=== PATIENT | male | born 1990 | race Caucasian/White ===

== ENCOUNTER 2016-11-19 18:28 | Inpatient (IN) | payer OTHER ==
[~2016-11-19] VITALS: Ht 175.3 cm; Wt 66.2 kg
[2016-11-20] MEDS ORDERED: BUPRENORPHINE HCL 2 MG TAB.SUBL SL PRN ×2 (02:30→12:45)
[2016-11-20] MEDS ORDERED: MAG HYDROX/AL HYDROX/SIMETH 30 ML LIQUID UDC PO PRN (02:30)
[2016-11-20] MEDS ORDERED: ACETAMINOPHEN 325 MG TABLET PO PRN (02:30)
[2016-11-20] MEDS ORDERED: IBUPROFEN 400 MG TABLET PO PRN (02:30)
[2016-11-20] MEDS ORDERED: diphenhydrAMINE 50 MG CAPSULE PO PRN (02:30)
[2016-11-20] MEDS ORDERED: LORAZEPAM 2 MG/1 ML VIAL IM PRN (02:30)
[2016-11-20] MEDS ORDERED: LOPERAMIDE HCL 2 MG CAPSULE PO PRN ×2 (02:30)
[2016-11-20] MEDS ORDERED: MAGNESIUM HYDROXIDE 30 ML LIQUID UDC PO PRN (02:30)
[2016-11-20] MEDS ORDERED: DIAZEPAM 10 MG TABLET PO PRN ×4 (02:30→12:45)
[2016-11-20] MEDS ORDERED: HYDROXYZINE PAMOATE 25 MG CAPSULE PO PRN (02:30)
[2016-11-20] MEDS ORDERED: MIRALAX 17 GM POWD.PACK PO PRN (02:30)
[2016-11-20] MEDS ORDERED: DICYCLOMINE HCL 20 MG TABLET PO PRN (02:30)
[2016-11-20] MEDS ORDERED: DIAZEPAM 5 MG TABLET PO PRN ×2 (02:30→12:45)
[2016-11-20] MEDS ORDERED: ONDANSETRON 4 MG/2 ML VIAL IM PRN (02:30)
[2016-11-20 02:34] LABS: *AMPHETAMINE, URINE NEGATIVE (NEGATIVE); *BARBITURATE, URINE NEGATIVE (NEGATIVE); *CANNABINOID, URINE NEGATIVE (NEGATIVE); *COCCAINE, URINE POSITIVE (NEGATIVE); *OPIATE, URINE POSITIVE (NEGATIVE); *PHENCYCLIDINE SCREEN,URINE NEGATIVE (NEGATIVE)
[2016-11-20 03:08] LABS: BASOPHILS % (AUTO) 0.4 % (0.0-2.0); EOSINOPHILS # (AUTO) 0.1 K/uL (0.0-0.7); EOSINOPHILS % (AUTO) 1.7 % (0.0-7.0); HEMATOCRIT 37.2 % (36.7-47.1); LYMPHOCYTES # (AUTO) 1.7 K/uL (20.0-40.0); MEAN CORPUSCULAR HEMOGLOBIN 26.7 uug (23.8-33.4); MEAN CORPUSCULAR HGB CONC 35 g/dL (32.5-36.3); MEAN CORPUSCULAR VOLUME 76.6 fL (73.0-96.2); MONOCYTES # (AUTO) 0.8 K/uL (2.0-10.0); MONOCYTES % (AUTO) 9.4 % (0.0-11.0); NEUTROPHILS # (AUTO) 5.4 K/uL (1.8-8.9); NEUTROPHILS % (AUTO) 67.5 % (38.5-71.5); PLATELET COUNT (AUTO) 327 K/uL (152-348); RED BLOOD CELL COUNT(AUTO) 4.86 MIL/uL (4.06-5.63)
[2016-11-20 03:28] LABS: ETHANOL < 3 MG/DL (0-0)
[2016-11-20 03:32] LABS: ALANINE AMINOTRANSFERASE 22 U/L (16-63); ALBUMIN 3.9 g/dL (3.4-5.0); ALKALINE PHOSPHATASE 80 U/L (50-136); AMYLASE 59 U/L (25-115); ASPARTATE AMINOTRANSFERASE 18 U/L (15-37); BILIRUBIN,TOTAL 0.6 mg/dL (0.2-1.0); CALCIUM 8.8 mg/dL (8.5-10.1); CARBON DIOXIDE 32 mmol/L (21-32); CHLORIDE 101 mmol/L (98-107); CREATININE 1.2 mg/dL (0.6-1.3); GFR 74 mL/min (>60); GLUCOSE 96 mg/dL (74-106); LIPASE 124 U/L (73-393); POTASSIUM 3.5 mmol/L (3.5-5.1); SODIUM SERUM 139 mmol/L (136-145); TOTAL PROTEIN, SERUM 8.4 g/dL (6.4-8.2); UREA NITROGEN, BLOOD 11 mg/dL (7-18)
[2016-11-20 03:35] LABS: HIV-1 p24 ANTIGEN NON REACTIVE (NONREACTIVE); HIV-1/2 ANTIBODY NON REACTIVE (NONREACTIVE)
[2016-11-20 03:41] LABS: THYROID STIMULATING HORMONE 2.539 mIU/mL (0.358-3.740)
[2016-11-20 04:00] VITALS: BP 114/55
[2016-11-20] MEDS ORDERED: CLON0.1T PO (05:28)
[2016-11-20] MEDS ORDERED: GABA600T2 PO (05:28)
[2016-11-20 08:06] VITALS: BP 107/66
[2016-11-20] MEDS: MULTIVITAMINS,THERAPEUTIC TABLET PO SCH (09:28)
[2016-11-20] MEDS: CLONIDINE HCL 0.1 MG TABLET PO PRN ×2 (09:28→21:26)
[2016-11-20 12:50] VITALS: BP 137/86
[2016-11-20] MEDS: ONDANSETRON ODT 4 MG TAB.RAPDIS SL PRN (13:05)
[2016-11-20] MEDS: METHOCARBAMOL 750 MG TABLET PO PRN (13:05)
[2016-11-20] MEDS: GABAPENTIN 300 MG CAPSULE PO SCH ×2 (14:28→21:16)
[2016-11-20] MEDS: DIAZEPAM 10 MG TABLET PO SCH ×2 (14:28→21:16)
[2016-11-20 16:55] VITALS: BP 135/81
[2016-11-20 20:00] VITALS: BP 137/69
[2016-11-21] VITALS: BP 128/66
[2016-11-21] MEDS: GABAPENTIN 300 MG CAPSULE PO SCH ×3 (08:18→21:26)
[2016-11-21] MEDS: BUPRENORPHINE HCL 2 MG TAB.SUBL SL SCH ×4 (08:18→21:27)
[2016-11-21] MEDS: DIAZEPAM 10 MG TABLET PO SCH ×3 (08:18→21:26)
[2016-11-21] MEDS: MULTIVITAMINS,THERAPEUTIC TABLET PO SCH (08:18)
[2016-11-21 08:23] VITALS: BP 131/72
[2016-11-21] MEDS: ONDANSETRON ODT 4 MG TAB.RAPDIS SL PRN (08:37)
[2016-11-21] MEDS ORDERED: TUBERCULIN,PURIF.PROT.DERIV. 5 TU/0.1 ML TEST ID ONE (09:00)
[2016-11-21] MEDS ORDERED: NICOTINE POLACRILEX 4 MG GUM-PK OF TEN BC PRN (12:00)
[2016-11-21] MEDS: NICOTINE POLACRILEX 4 MG GUM-PK OF TEN BC PRN (12:34)
[2016-11-21 12:45] VITALS: BP 141/70
[2016-11-21 16:55] VITALS: BP 143/92
[2016-11-21 20:00] VITALS: BP 149/91
[2016-11-21] MEDS: METHOCARBAMOL 750 MG TABLET PO PRN (21:27)
[2016-11-21] MEDS ORDERED: DIAZEPAM 10 MG TABLET PO PRN ×2 (21:30)
[2016-11-21] MEDS ORDERED: DIAZEPAM 5 MG TABLET PO PRN (21:30)
[2016-11-21] MEDS: CLONIDINE HCL 0.1 MG TABLET PO PRN (22:24)
[2016-11-22] VITALS: BP 108/68
[2016-11-22 04:00] VITALS: BP 112/68
[2016-11-22 08:00] VITALS: BP 139/81
[2016-11-22] MEDS: MULTIVITAMINS,THERAPEUTIC TABLET PO SCH (08:26)
[2016-11-22] MEDS: DIAZEPAM 5 MG TABLET PO SCH ×4 (08:27→21:53)
[2016-11-22] MEDS: GABAPENTIN 300 MG CAPSULE PO SCH ×2 (08:27→15:26)
[2016-11-22] MEDS: BUPRENORPHINE HCL 2 MG TAB.SUBL SL SCH ×3 (08:27→21:54)
[2016-11-22] MEDS: NICOTINE POLACRILEX 4 MG GUM-PK OF TEN BC PRN ×3 (08:43→22:04)
[2016-11-22 12:00] VITALS: BP 140/89
[2016-11-22] MEDS: BACLOFEN 10 MG TABLET PO SCH ×2 (15:26→22:03)
[2016-11-22 16:00] VITALS: BP 133/79
[2016-11-22 20:00] VITALS: BP 132/76
[2016-11-22] MEDS ORDERED: GABAPENTIN 300 MG CAPSULE PO SCH (21:00)
[2016-11-23] VITALS: BP 125/76
[2016-11-23 03:06] LABS: HCV AB 0.1 s/co ratio (0.0-0.9); HEPATITIS B CORE AB, IgM Negative (Negative); HEPATITIS B SURFACE AG Negative (Negative)
[2016-11-23 04:00] VITALS: BP 141/94
[2016-11-23 08:00] VITALS: BP 150/84
[2016-11-23] MEDS ORDERED: BUPRENORPHINE HCL 2 MG TAB.SUBL SL SCH (09:00)
[2016-11-23] MEDS: BACLOFEN 10 MG TABLET PO SCH ×3 (09:22→20:53)
[2016-11-23] MEDS: MULTIVITAMINS,THERAPEUTIC TABLET PO SCH (09:22)
[2016-11-23] MEDS: DIAZEPAM 5 MG TABLET PO SCH ×3 (09:23→20:53)
[2016-11-23] MEDS: GABAPENTIN 300 MG CAPSULE PO SCH ×3 (09:23→20:52)
[2016-11-23] MEDS: NICOTINE POLACRILEX 4 MG GUM-PK OF TEN BC PRN ×3 (10:20→17:35)
[2016-11-23 12:00] VITALS: BP 128/88
[2016-11-23] MEDS: BUPRENORPHINE HCL 2 MG TAB.SUBL SL SCH ×2 (15:19→20:56)
[2016-11-23 16:00] VITALS: BP 130/75
[2016-11-23 20:00] VITALS: BP 138/85
[2016-11-23] MEDS: CLONIDINE HCL 0.1 MG TABLET PO SCH (20:53)
[2016-11-24 08:00] VITALS: BP 121/78
[2016-11-24] MEDS: CLONIDINE HCL 0.1 MG TABLET PO SCH ×2 (09:17→21:30)
[2016-11-24] MEDS: DIAZEPAM 5 MG TABLET PO SCH ×2 (09:17→21:29)
[2016-11-24] MEDS: GABAPENTIN 300 MG CAPSULE PO SCH ×3 (09:17→21:29)
[2016-11-24] MEDS: MULTIVITAMINS,THERAPEUTIC TABLET PO SCH (09:18)
[2016-11-24] MEDS: NICOTINE POLACRILEX 4 MG GUM-PK OF TEN BC PRN ×3 (09:18→21:30)
[2016-11-24] MEDS: BACLOFEN 10 MG TABLET PO SCH ×3 (09:18→21:30)
[2016-11-24] MEDS: BUPRENORPHINE HCL 2 MG TAB.SUBL SL SCH ×3 (09:18→21:31)
[2016-11-24 12:00] VITALS: BP 120/74
[2016-11-24 16:00] VITALS: BP 126/74
[2016-11-24 20:00] VITALS: BP 126/76
[2016-11-25 08:00] VITALS: BP 102/63
[2016-11-25] MEDS: MULTIVITAMINS,THERAPEUTIC TABLET PO SCH (09:00)
[2016-11-25] MEDS: CLONIDINE HCL 0.1 MG TABLET PO SCH ×2 (09:00→21:59)
[2016-11-25] MEDS ORDERED: BUPRENORPHINE HCL 2 MG TAB.SUBL SL SCH (09:00)
[2016-11-25] MEDS: BACLOFEN 10 MG TABLET PO SCH ×3 (09:00→21:56)
[2016-11-25] MEDS: GABAPENTIN 300 MG CAPSULE PO SCH ×3 (09:00→21:57)
[2016-11-25] MEDS: NICOTINE POLACRILEX 4 MG GUM-PK OF TEN BC PRN ×3 (09:12→18:17)
[2016-11-25 12:00] VITALS: BP 115/71
[2016-11-25 15:33] LABS: *AMPHETAMINE, URINE NEGATIVE (NEGATIVE); *BARBITURATE, URINE NEGATIVE (NEGATIVE); *CANNABINOID, URINE NEGATIVE (NEGATIVE); *COCCAINE, URINE NEGATIVE (NEGATIVE); *OPIATE, URINE NEGATIVE (NEGATIVE); *PHENCYCLIDINE SCREEN,URINE NEGATIVE (NEGATIVE)
[2016-11-25 16:00] VITALS: BP 132/81
[2016-11-25 20:00] VITALS: BP 141/96
[2016-11-26] VITALS: BP 121/73
[2016-11-26] MEDS ORDERED: NICO4GUM BC (00:13)
[2016-11-26] MEDS ORDERED: Ondansetron SL (00:13)
[2016-11-26] MEDS ORDERED: Gabapentin PO (00:13)
[2016-11-26] MEDS ORDERED: DIPH50CA37 PO (00:13)
[2016-11-26] MEDS ORDERED: DICY20TA28 PO (00:13)
[2016-11-26] MEDS ORDERED: HYDR-3895 PO (00:13)
[2016-11-26] MEDS ORDERED: Baclofen PO (00:13)
[2016-11-26] MEDS ORDERED: Ibuprofen PO (00:13)
[2016-11-26] MEDS ORDERED: Acetaminophen PO (00:13)
[2016-11-26] MEDS ORDERED: CLON0.1T14 PO (00:13)
[2016-11-26 08:00] VITALS: BP 128/78
[2016-11-26 08:15] VITALS: BP 128/78
[2016-11-26] MEDS: NICOTINE POLACRILEX 4 MG GUM-PK OF TEN BC PRN (08:15)
[2016-11-26] MEDS: MULTIVITAMINS,THERAPEUTIC TABLET PO SCH (08:15)
[2016-11-26] MEDS: BACLOFEN 10 MG TABLET PO SCH (08:15)
[2016-11-26] MEDS: CLONIDINE HCL 0.1 MG TABLET PO SCH (08:15)
[2016-11-26] MEDS: GABAPENTIN 300 MG CAPSULE PO SCH (08:15)
[2016-11-27 16:11] LABS: *BENZODIAZEPINES Negative (Cutoff=300); *COCAINE Positive (.); *CODEINE Positive (.); *HYDROMORPHONE Positive (.); *OPIATES Positive ng/mL (Cutoff=300)
== END 2016-11-26 10:48 | disposition other institution (70) | DRG 895 ==
LOC: EDBD 11-20 01:02 → SRC 11-20 01:02
PROVIDERS: ADMIT Internal Medicine; ATTEND Internal Medicine
PROC: HZ2ZZZZ Detoxification Services for Substance Abuse Treatment (ICD-10-PCS; principal; 2016-11-20)
PROC: HZ41ZZZ Group Counseling for Substance Abuse Treatment, Behavioral (ICD-10-PCS; 2016-11-21)
PROC: HZ31ZZZ Individual Counseling for Substance Abuse Treatment, Behavioral (ICD-10-PCS; 2016-11-23)
DX: F11.23 Opioid dependence with withdrawal (principal); F90.9 Attention-deficit hyperactivity disorder, unspecified type; F41.9 Anxiety disorder, unspecified; F17.290 Nicotine dependence, other tobacco product, uncomplicated; Z81.8 Family history of other mental and behavioral disorders; Z81.1 Family history of alcohol abuse and dependence; F14.10 Cocaine abuse, uncomplicated; F13.230 Sedative, hypnotic or anxiolytic dependence with withdrawal, uncomplicated; I15.9 Secondary hypertension, unspecified; F12.90 Cannabis use, unspecified, uncomplicated
CPT/HCPCS: 36415; 70030-TC; 71010; 80307; 80346; 80353; 80361; 83690; 83735; 84443; 85025; 86592; 86705; 86803; 87340; 87806; A4663; G6040-TC; Q0162